=== PATIENT | female | born 1995 | race Caucasian/White ===

== ENCOUNTER 2022-10-17 10:21 | Outpatient (CLI) | payer OTHER, SELFPAY | END 2022-10-17 10:22 | disposition home or self-care (01) | LOC: LKVREF 10:22 | PROVIDERS: PCP Physician Assistant Medical; Visit Provider Physician Assistant Medical | DX: Z00.00 Encounter for general adult medical examination without abnormal findings (principal); F41.9 Anxiety disorder, unspecified; R63.5 Abnormal weight gain; Z13.6 Encounter for screening for cardiovascular disorders | CPT/HCPCS: 80061; 84443 ==

== ENCOUNTER 2023-05-09 14:09 | Outpatient (CLI) | payer OTHER, SELFPAY | END 2023-05-09 14:10 | disposition home or self-care (01) | LOC: LKVREF 14:10 | PROVIDERS: PCP Physician Assistant Medical; Visit Provider Physician Assistant Medical | DX: N93.9 Abnormal uterine and vaginal bleeding, unspecified (principal) | CPT/HCPCS: 82627; 82670; 83001; 83002; 83498; 83520; 84270; 84403; 84443 ==

== ENCOUNTER 2023-05-27 08:25 | Outpatient (CLI) | payer OTHER, SELFPAY | END 2023-05-27 08:26 | disposition home or self-care (01) | LOC: NFLDREF 05-30 09:33 | PROVIDERS: PCP Physician Assistant Medical; Referring Provider Physician Assistant Medical; Visit Provider Physician Assistant Medical | DX: N92.6 Irregular menstruation, unspecified (principal); R01.1 Cardiac murmur, unspecified | CPT/HCPCS: 84146 ==

== ENCOUNTER 2023-05-28 07:57 | Outpatient (CLI) | payer OTHER, SELFPAY ==
--- NOTE | 2023-05-28 08:15 | CRLHL7_ITS ---
For Patients: As a result of the Century Cures Act, medical imaging exams and procedure reports are released immediately into your electronic medical record. You may view this report before your referring provider. If you have questions, please contact your health care provider. INDICATION: 28 year-old female. Irregular menses. TECHNIQUE: Transabdominal and transvaginal pelvic ultrasound. FINDINGS: Normal-appearing uterus measuring 7.6 x 3.7 x 8.9 cm. Normal endometrial stripe of 8 mm measured transvaginally. Normal-sized ovaries without torsion or mass. The right ovary measures 4.4 x 2.9 x 2.7 cm and the left ovary 4.3 x 2.6 x 3.0 cm. Small follicles are identified in each ovary. Trace free fluid in the cul-de-sac likely physiologic. Tiny cervical nabothian cyst. IMPRESSION: Normal transabdominal and transvaginal pelvic ultrasound. Dictated by Juanjo Olivia MD @ 05/28/2023 11:21:26 AM (Electronically Signed)
== END 2023-05-28 07:58 | disposition home or self-care (01) ==
LOC: US 07:57
PROVIDERS: PCP Physician Assistant Medical; Visit Provider Physician Assistant Medical
DX: N92.6 Irregular menstruation, unspecified (principal)
CPT/HCPCS: 76830; 76856

== ENCOUNTER 2023-06-14 08:47 | Outpatient (CLI) | payer OTHER, SELFPAY ==
--- NOTE | 2023-06-14 09:15 | CRLHL7_ITS ---
For Patients: As a result of the Century Cures Act, medical imaging exams and procedure reports are released immediately into your electronic medical record. You may view this report before your referring provider. If you have questions, please contact your health care provider. Indication: Infertility Technique: Hysterosalpingogram. Fluoroscopic time 31 seconds. IMPRESSION: Normal patency of the fallopian tubes. No endometrial filling defect. Normal exam. Dictated by Raul Chan MD @ 06/14/2023 10:36:05 AM (Electronically Signed)
--- NOTE | 2023-06-14 09:56 | W.PM.GYNPROC ---
Procedure Note Date of procedure: 06/14/23 Procedure: Hysterosalpingogram Procedure Description: PREPROCEDURE DIAGNOSIS: Primary infertility. POSTPROCEDURE DIAGNOSIS: 1. Primary infertility. 2. Patent fallopian tubes bilaterally. NAME OF PROCEDURE: Hysterosalpingogram. ANESTHESIA: None. COMPLICATIONS: None. PROCEDURE: After obtaining verbal and written consent, the patient was placed in the dorsal lithotomy position on the x-ray table. An open-sided bivalve speculum was introduced into the vagina and the cervix easily visualized. The cervix and vagina were then prepped with Betadine. The anterior lip of the cervix was grasped with a single-tooth tenaculum for traction. A balloon tipped double-lumen catheter was then gently inserted through the cervical opening into the uterine cavity to the level of the fundus. The balloon was insufflated with 3 mL of air. The speculum was removed. The patient was repositioned in the supine position, covered, and the radiologist was called to the room. A hysterosalpingogram was then performed. A total of approximately 4 cc of Optiray 300 water soluble contrast dye was injected through the double-lumen catheter under moderate pressure. There was immediate fill of the uterine cavity to the cornua and immediate fill of both fallopian tubes and free spillage into the peritoneal cavity. The endometrial cavity was normal shape. The balloon was deflated. The catheter was removed. The tenaculum was removed, and hemostasis of the cervix was noted. The patient tolerated the procedure very well. She was discharged to home in stable condition to follow up as [facility].
== END 2023-06-14 08:48 | disposition home or self-care (01) ==
LOC: RAD 08:47
PROVIDERS: PCP Physician Assistant Medical; Visit Provider Obstetrics & Gynecology
DX: N92.6 Irregular menstruation, unspecified (principal); N97.9 Female infertility, unspecified
CPT/HCPCS: 58340; 74740; A4649; Q9967

== ENCOUNTER 2023-12-11 08:01 | Outpatient (CLI) | payer OTHER, SELFPAY ==
--- NOTE | 2023-12-11 08:15 | US_ITS ---
Patient: SHARRI NULL Facility:?[facility] RIS Patient ID:?[id number] Site Patient ID:?[id number]. Site :?[id number] Study:?US-OB Pelvis TV OB<14wks-12/11/2023 9:03:52 AM Ordering Physician:Monica Greene Final Report: OBSTETRICAL ULTRASOUND, 12/11/2023 INDICATION: Ultrasound for dates and viability. 8, para 3. LMP: 10/13/2023 NOE by LMP: 07/19/2024 Previous US: No TECHNIQUE: Transvaginal pelvic ultrasound. FINDINGS: CRL: 2.02 cm, 8 weeks 4 days; NOE 07/18/2024 heart rate: 165 BPM Gestational sac: 3.73 cm Yolk sac: 3.1 mm Right ovary: Within normal limits; 3.0 x 1.9 x 2.1 cm Left ovary: Within normal limits; 5.3 x 3.2 x 3.6 cm, CL 2.9 cm IMPRESSION: 1. Single viable intrauterine . 2. Measurements are consistent with dates. LENA GOLDSTEIN M.D. Body/Diagnostic Radiologist [email or web address] NJG:mitchell D& Transcribed: 12:[address]/Dictated by: Lena Goldstein MD @ 12/11/2023 12:07:00 PM Signed by:?Lena Goldstein MD @12/11/2023 12:32:00 PM (Electronic Signature)
== END 2023-12-11 08:02 | disposition home or self-care (01) ==
LOC: US 08:03
PROVIDERS: PCP Physician Assistant Medical; Visit Provider Registered Nurse
DX: Z34.81 Encounter for supervision of other normal pregnancy, first trimester (principal); Z3A.08 8 weeks gestation of pregnancy
CPT/HCPCS: 76817; 82565; 82570; 84156; 84450; 84460; 84520; 84550; 86703; 86706; 86803; 86850; 86900; 86901; 87086; 87340; 87491; 87591

== ENCOUNTER 2023-12-11 09:14 | Outpatient (CLI) | payer OTHER, SELFPAY ==
[2023-12-11 16:00] LABS: Chlamydia DNA Amplified* NOT DETECTED (No Detected); GC DNA Amplified* NOT DETECTED (No Detected)
== END 2023-12-11 09:15 | disposition home or self-care (01) ==
PROVIDERS: PCP Physician Assistant Medical; Visit Provider Registered Nurse
DX: Z34.01 Encounter for supervision of normal first pregnancy, first trimester (principal)
CPT/HCPCS: 82565; 82570; 84156; 84450; 84460; 84520; 84550; 86592; 86703; 86704; 86706; 86762; 86787; 86803; 86850; 86900; 86901; 87086; 87340; 87491; 87591

== ENCOUNTER 2024-01-13 07:55 | Outpatient (CLI) | payer OTHER, SELFPAY | END 2024-01-13 07:56 | disposition home or self-care (01) | LOC: NFLDREF 01-17 15:51 | PROVIDERS: PCP Physician Assistant Medical; Referring Provider Physician Assistant Medical; Visit Provider Registered Nurse | DX: Z34.01 Encounter for supervision of normal first pregnancy, first trimester (principal) | CPT/HCPCS: 82570; 84156 ==

== ENCOUNTER 2024-02-05 10:52 | Outpatient (CLI) | payer OTHER, SELFPAY | END 2024-02-05 10:53 | disposition home or self-care (01) | LOC: NFLDREF 10:53 | PROVIDERS: PCP Physician Assistant Medical; Visit Provider Obstetrics & Gynecology | DX: Z34.92 Encounter for supervision of normal pregnancy, unspecified, second trimester (principal); Z3A.16 16 weeks gestation of pregnancy | CPT/HCPCS: 81511 ==

== ENCOUNTER 2024-03-04 07:01 | Outpatient (CLI) | payer OTHER, SELFPAY ==
--- NOTE | 2024-03-04 07:15 | CRLHL7_ITS ---
For Patients: As a result of the Century Cures Act, medical imaging exams and procedure reports are released immediately into your electronic medical record. You may view this report before your referring provider. If you have questions, please contact your health care provider. INDICATION: Evaluate anatomy. COMPARISON: 12/11/2023 TECHNIQUE: Real time tierney scale imaging of the fetus was performed as well as color Doppler analysis of the umbilical vessels. FINDINGS: Sonographic imaging demonstrates a single living intrauterine gestation. Fetus demonstrates a regular cardiac rate of 121 beats per minute. Fetus has a vertex position. The placenta lies anteriorly without evidence of placenta previa. Edge of the placenta located 8.2 cm from the internal cervical os. Amniotic fluid volume appears normal. Single deepest vertical pocket: 4.5 cm. The cervix is closed and measures 3.7 cm in length. The composite ultrasound gestational age is calculated at 20 weeks 5 days with an estimated sonographic due date of 07/17/2024. The estimated weight is 385 grams which lies at the 72nd %. The following biometric measurements were obtained: Biparietal diameter: 4.7 cm/20 weeks 1 day 36th% Head circumference: 18.0 cm/20 weeks 3 days 41st% Abdominal circumference: 16.3 cm/21 weeks 3 day 75th% Femur length: 3.4 cm/20 weeks 3 days 44th% The HC/AC ratio measures: 1.10 range (1.06-1.25) On anatomic survey, there is a normal appearance of the cerebral ventricles, cavum septi pellucidi, cisterna magna and cerebellum. The nose and lips appear normal. Incomplete visualization of the profile. The cervical, thoracic and lumbar spine are well visualized and appear normal. There is a normal four-chamber heart view and the left and right ventricular outflow tracts appear normal. The diaphragm and stomach appear normal. The kidneys and bladder also appear normal. There is a normal three-vessel cord and cord insertion site. The four extremities appear normal. IMPRESSION: Normal OB ultrasound exam with concordance of clinical and sonographic dating. Incomplete visualization of the profile. Remainder of the anatomic survey normal. Short-term follow-up recommended. Dictated by Raul Chan MD @ 03/05/2024 8:49:57 AM (Electronically Signed)
== END 2024-03-04 07:02 | disposition home or self-care (01) ==
LOC: US 07:01
PROVIDERS: PCP Physician Assistant Medical; Visit Provider Obstetrics & Gynecology
DX: Z34.92 Encounter for supervision of normal pregnancy, unspecified, second trimester (principal); Z3A.20 20 weeks gestation of pregnancy
CPT/HCPCS: 76805

== ENCOUNTER 2024-04-01 12:07 | Outpatient (CLI) | payer OTHER, SELFPAY ==
--- NOTE | 2024-04-01 12:15 | CRLHL7_ITS ---
For Patients: As a result of the Century Cures Act, medical imaging exams and procedure reports are released immediately into your electronic medical record. You may view this report before your referring provider. If you have questions, please contact your health care provider. INDICATION: 2nd trimester anatomical survey follow-up. TECHNIQUE: Ultrasound OB pelvis transabdominal. Real-time tierney-scale imaging of the fetus was performed as well as color Doppler and spectral Doppler analysis of the umbilical artery. COMPARISON: 03/04/2024. FINDINGS: Intrauterine gestation: Single. heart rate: Regular, 144 bpm. presentation: Breech. Placenta: Anterior, without previa. Cervix: Not measured. Amniotic fluid: 6 cm deepest pocket. BPD: 20th percentile. HC: 37th percentile. HC: 93rd percentile. FL: 37th percentile. Anatomy not seen on previous anatomical survey: facial profile is visualized and appears normal. IMPRESSION: Single viable intrauterine . Normal facial profile is visualized on today`s exam. Dictated by Hugo Wiley MD @ 04/03/2024 7:08:57 AM (Electronically Signed)
== END 2024-04-01 12:08 | disposition home or self-care (01) ==
LOC: US 12:07
PROVIDERS: PCP Physician Assistant Medical; Visit Provider Obstetrics & Gynecology
DX: Z34.90 Encounter for supervision of normal pregnancy, unspecified, unspecified trimester (principal); O35.AXX0 Maternal care for other (suspected) fetal abnormality and damage, fetal facial anomalies, not applicable or unspecified
CPT/HCPCS: 76816

== ENCOUNTER 2024-04-29 09:32 | Outpatient (CLI) | payer OTHER, SELFPAY | END 2024-04-29 09:33 | disposition home or self-care (01) | LOC: NFLDREF 05-01 08:47 | PROVIDERS: PCP Physician Assistant Medical; Referring Provider Physician Assistant Medical; Visit Provider Obstetrics & Gynecology | DX: Z34.03 Encounter for supervision of normal first pregnancy, third trimester (principal) | CPT/HCPCS: 86592 ==

== ENCOUNTER 2024-06-24 14:17 | Outpatient (CLI) | payer OTHER, SELFPAY ==
[2024-06-25 13:36] LABS: Strep B DNA Probe Negative (Negative)
[2024-06-25 13:41] LABS: Strep B Susceptibility Needed? No
== END 2024-06-24 14:18 | disposition home or self-care (01) ==
LOC: NFLDREF 14:17
PROVIDERS: PCP Physician Assistant Medical; Visit Provider Obstetrics & Gynecology
DX: Z34.93 Encounter for supervision of normal pregnancy, unspecified, third trimester (principal); Z3A.36 36 weeks gestation of pregnancy
CPT/HCPCS: 87081; 87653

== ENCOUNTER 2024-07-14 01:05 | Outpatient (CLI) | payer OTHER, SELFPAY ==
[2024-07-14 01:14] VITALS: BP 130/90; PULSE 85; PULSE 88; RESP 16; TEMP 36.7; O2SAT 99
--- NOTE | 2024-07-14 02:35 | PC.OBNST ---
NST Note NST Note Start: 07/14/24 01:17 Freq: ONCE Status: Active Protocol: Document 07/14/24 02:32 RRP (Rec: 07/14/24 02:34 RRP [id number]) NST Note 1 Para (# of births) 0 EDC 07/19/24 Gestational Age In Weeks & Days 39 Weeks & 2 Days Patient Presented with Complaint(s) of Contractions/cramping, Decreased movement Reactive Yes Appropriate for Gestational Age Yes PHU Castro RN Date 07/14/24 Reactive Yes Appropriate for Gestational Age Yes PHU Casas Date 07/14/24 OB NST charge Yes Complete NST Note via Write Note Yes The provider's electronic signature indicates the NST is reactive/appropriate for gestational age. *Note to provider: If an addendum is required, open the patient's chart and click on the note under the Nurse/Allied Health tab.
== END 2024-07-14 02:30 | disposition home or self-care (01) ==
LOC: OB OUT 01:06 → OB 01:08
PROVIDERS: PCP Physician Assistant Medical; Visit Provider Obstetrics & Gynecology
DX: O47.1 False labor at or after 37 completed weeks of gestation (principal); O36.8130 Decreased fetal movements, third trimester, not applicable or unspecified; Z3A.39 39 weeks gestation of pregnancy
CPT/HCPCS: 59025; G0463

== ENCOUNTER 2024-07-19 13:53 | Outpatient (CLI) | payer OTHER, SELFPAY ==
[2024-07-19 14:04] VITALS: PULSE 89; O2SAT 97
[2024-07-19 14:08] VITALS: BP 132/76; PULSE 82
[2024-07-19] MEDS: hydrOXYzine pamoate 25 MG CAPSULE 100 MG PO (16:48)
[2024-07-19] MEDS: MORPHINE 10 MG/ML inj IM (16:48)
--- NOTE | 2024-07-19 18:32 | PC.OBNST ---
NST Note NST Note Start: 07/19/24 13:58 Freq: ONCE Status: Active Protocol: Document 07/19/24 18:32 MARILUZBRANDON (Rec: 07/19/24 18:32 MARILUZBRANDON [id number]) NST Note 1 Para (# of births) 0 EDC 07/19/24 Gestational Age In Weeks & Days 40 Weeks & 0 Days Patient Presented with Complaint(s) of Contractions/cramping Reactive Yes Appropriate for Gestational Age Yes PHU Jimenez Date 07/19/24 Reactive Yes Appropriate for Gestational Age Yes PHU Dc RN Date 07/19/24 OB NST charge Yes Complete NST Note via Write Note Yes The provider's electronic signature indicates the NST is reactive/appropriate for gestational age. *Note to provider: If an addendum is required, open the patient's chart and click on the note under the Nurse/Allied Health tab.
== END 2024-07-19 17:30 | disposition home or self-care (01) ==
LOC: OB OUT 13:53 → OB 13:55
PROVIDERS: PCP Physician Assistant Medical; Visit Provider Obstetrics & Gynecology
DX: O47.1 False labor at or after 37 completed weeks of gestation (principal); Z3A.40 40 weeks gestation of pregnancy
CPT/HCPCS: 59025; G0463; A9270; J2270

== ENCOUNTER 2024-07-19 23:19 | Inpatient (IN) | payer OTHER, SELFPAY ==
[2024-07-19 22:59] VITALS: BP 134/73; PULSE 99
[2024-07-19 23:10] LABS: Amnisure Rom* POSITIVE
[2024-07-19 23:27] VITALS: RESP 18; TEMP 37.2
[2024-07-19 23:41] LABS: Hematocrit 38.4 % (33.0-51.0); Hemoglobin* 13.2 gm/dL (12.0-16.0); Immature Granulocytes Pct Auto 1.1 %; Lymphocytes Percent Auto 5.1 % (20-44); Mean Corpuscular HGB Conc 34 gm/dL (32-36); Mean Corpuscular Hemoglobin 30 pg (26-34); Mean Corpuscular Volume 87 fL (80-100); Monocytes Percent Auto 4.5 % (0.0-11.0); Neutrophils Percent Auto 89.3 % (42.0-72.0); Platelet Count* 305 K/uL (140-440); RDW Coefficient of Variation % 13.1 % (11.5-15.5); White Blood Count* 22.89 K/uL (4.50-11.00)
[2024-07-19 23:42] LABS: Slide Review Reflex No
--- NOTE | 2024-07-19 23:43 | W.PM.LDBA ---
Subjective History of Present Illness Narrative: Patient is being admitted to Labor and Delivery for spontaneous rupture of membranes at term, ocurring at 10:30 PM tonight. She is a 29 year old at 40 weeks gestation. Her full history and physical was dictated by Dr. Wen on 06/29/2024. Please see this for details. Specific Issues/Plans G 1 P 0 Partner: Heraclio H&P: 06/29/24 Dr. Wen 1. History of infertility. Conceived spontaneously before going to Reproductive Endocrinology. Imagin12/11/2023: 8 weeks, 4 days by CRL, with sonographic NOE 07/18/2024. 03/04/2024: Anterior placenta without previa, normal fluid, EFW 72%, AC 75%. Incomplete visualization of the profile. Otherwise normal anatomy. 04/01/2024: Breech, normal fluid, EFW 84%, AC 93%, all other biometric parameters within normal ranges, normal facial profile. Baseline preeclampsia labs: BUN, Creat, AST, ALT all normal. P/C ratio 0.3*. Total protein 24 hour: 225 NIPT: Negative GBS negative Vaccinations: Covid: Completed, not up-to-date with boosters. Recommended. Patient declines. RSV: 06/24/24 Flu: Done TDAP: 05/13/24 Last pap: due OB - Problem Based A/P Additional Plan (1) : Status: Acute Plan Spontaneous rupture membranes in early labor. Category 1 tracing. GBS negative She requests epidural. Will begin pitocin after epidural placement. Delivery/Labor/Induction Plan Plan: expectant management (If contractions become less frequent, I would recommend initiation of pitocin. ) OB Exam Physical Exam Vital signs: Pulse BP 99 134/73 07/19/24 22:59 07/19/24 22:59 Narrative: Physical exam: General: No acute distress Psych: Alert and oriented x3, full affect HEENT: Normocephalic, atraumatic Heart: Regular rate and rhythm, no murmur rub or gallop Lungs: Clear to auscultation bilaterally Abdomen: Soft, nontender, gravid, cephalic lie Lower extremities: No edema or erythema Pelvic exam: Per RN, 2 cm, 90% effaced, -2 station tracing: Baseline 140, accelerations present, no decelerations, moderate variability Contractions occurring every 1-3 minutes AmniSure positive
[2024-07-20] VITALS (107 sets, daily range): BP systolic 92–202; BP diastolic 50–105; PULSE 73–137; RESP 16–18; TEMP 36.7–37.7; O2SAT 90–100; BMI 29.8
[2024-07-20] MEDS: LACTATED RINGERS 1000 ML 1,000 ML 500 ML IV ×2 (00:17→01:39)
[2024-07-20] MEDS: LIDOCAINE 2% (PF) 5 ML VIAL EPIDURAL ×4 (01:28→11:50)
[2024-07-20] MEDS: ROPIVACAINE 0.2% 100 ml 100 ML 12 MG EPIDURAL ×2 (01:34→08:00)
--- NOTE | 2024-07-20 01:42 | P.ANBPRC_ITS ---
[facility] Medical History Reduced libido ?R68.82 - Decreased libido (ICD-10) Acne (03/18/12) ?L70.9 - Acne, unspecified (ICD-10) Motion sickness ?T75.3XXA - Motion sickness, initial encounter (ICD-10) Generalized anxiety disorder with panic attacks ?F41.1 - Generalized anxiety disorder (ICD-10) ?F41.0 - Panic disorder [episodic paroxysmal anxiety] (ICD-10) Surgical History History of arthroscopy of right knee ?Z98.890 - Other specified postprocedural states (ICD-10) Family History Mother H/O cardiac radiofrequency ablation Maternal Grandmother Ovarian cancer Paternal Grandfather Myocardial infarction Social History (Updated 06/29/24 @ 09:01 by Naomi Wen MD) 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 [facility] What is your current living situation?: I presently have a place to live Problems where you live: no known problems In the past 12 months, utilities in danger of being shut off: no In the past 12 mos, have been you worried that your food would run out before you had money to buy more?: never true In the past 12 mos, the food you bought just didn't last and you didn't have money to buy more?: never true Smoking Status: Never smoker How often does anyone, including family, friends and others, physically hurt you : never How often does anyone, including family, friends and others, insult or talk down to you: never How often does anyone, including family, friends and others, threaten you with harm: never How often does anyone, including family, friends and others, scream or curse at you: never Meds Home Medications and Allergies Home Medications ?Medication ?Instructions ?Recorded ?Confirmed ?Type docosahexaenoic acid 200 mg 200 mg PO DAILY 06/07/23 07/19/24 History capsule ( DHA) cholecalciferol (vitamin D3) 10 10 mcg PO QDAY 05/01/24 12/08/24 History mcg (400 unit) capsule doxylamine succinate 25 mg tablet 25 mg PO QHS PRN 03/04/24 07/19/24 History (Unisom (doxylamine)) Allergies Allergy/AdvReac Type Severity Reaction Status Date / Time penicillin V Allergy Mild hives Verified 07/19/24 22:56 Results Labs Labs: Laboratory Results - last 24 hr 07/19/24 07/19/24 22:58 23:20 WBC 22.89 H RBC 4.40 Hgb 13.2 Hct 38.4 MCV 87 MCH 30 MCHC 34 RDW Coeff of Tra 13.1 Plt Count 305 Neut % (Auto) 89.3 H Lymph % (Auto) 5.1 L [place] % (Auto) 4.5 Eos % (Auto) 0.0 Baso % (Auto) 0.0 Neut # (Auto) 20.40 H Lymph # (Auto) 1.20 [place] # (Auto) 1.00 H Eos # (Auto) 0.00 Baso # (Auto) 0.00 Abs Immat Gran (auto) 0.30 Imm/Tot Granulo (auto) 1.1 Membrane Rupture POSITIVE Blood Type A Positive Antibody Screen NEGATIVE Vital Signs Vital Signs: Last Vital Signs Temp 98.9 F 07/19/24 23:27 Pulse 91 07/20/24 01:40 Resp 18 07/19/24 23:27 BP 119/57 L 07/20/24 01:40 Pulse Ox 94 07/20/24 01:38 Anesthesia Procedures Epidural Insertion Patient Location: OB Start Time: 01:15 Stop Time: 01:45 Start Date: 07/20/24 Stop Date: 07/20/24 Reason for Block: primary anesthetic Patient Position: sitting Performed By: Cricket Lovell Preanesthetic Checklist: IV checked, risks and benefits discussed, surgical consent, monitors and equipment checked, pre-op evaluation, timeout performed and anesthesia consent Prep: chlorhexidine gluconate Monitoring: blood pressure monitoring, hall monitor, continuous pulse oximetry and heart rate Approach: midline Vertebral Space: lumbar (1-5) Needle Type: Tuohy needle Injection Technique: continuous catheter (catheter) Needle gauge: 17 Needle Length (cm): 10 cm Needle Insertion Depth (cm): 5 Catheter Gauge: 19 Catheter Type: multi-orifice Catheter at skin depth (cm): 10 Test Dose Result: negative and lidocaine 1.5% with epinephrine 1 to 200,000
[2024-07-20] MEDS: OXYTOCIN 30 unit/500 ML in NS 30 UNIT/500 ML BAG IVPB (02:54)
[2024-07-20] MEDS: PHENYLEPHRINE 100 MCG/ML SYRINGE IVP (03:20)
[2024-07-20] MEDS: ONDANSETRON 2 MG/ML inj 4 MG IV (04:00)
[2024-07-20] MEDS: LACTATED RINGERS 1000 ML 1,000 ML 125 ML IV ×2 (04:11→06:22)
--- NOTE | 2024-07-20 07:29 | PM.OBPNL ---
Subjective Time Seen by Provider: 07:20 Date Seen: 07/20/24 Narrative: Venus is more comfortable since her epidural, but complains of feeling more pain/pelvic pressure on the right side with contractions since the pitocin infusion was restarted at 6:00 am. She has been lying for a while on her left side. Pitocin infusion had been discontinued around 4:00 am after a prolonged deceleration of the heart rate of 6 minutes duration. The infusion had been started at 2:54 am at 2 mu/min, and was at a maximum of 4 mu/min before discontinuation. Objective Vital Signs: Last Vital Signs Temp 98.2 F 07/20/24 06:36 Pulse 95 07/20/24 07:14 Resp 16 07/20/24 06:36 BP 116/55 L 07/20/24 07:14 Pulse Ox 98 07/20/24 02:03 Pelvic Exam Dilation (cm): 4 Effacement (%): 100 Station: 0 Comments: Forebag palpable. Contractions Monitor mode: External Contraction Frequency: 2-3 minutes Contraction pattern: Regular Contraction intensity: Strong/Firm Pitocin Rate (mU/min): 2 Assessment Assessment: early labor Station: 0 Amniotic Membrane Status: SROM Status: Category ll Heart Rate Baseline: 145 Intermediate Variability: Moderate (6-25) Monitor Accelerations: Present Tracing Comments: Strip reviewed from time of admission: Initially, FHR baseline 150 bpm, category 1 tracing. Spontaneous deceleration of 2 minute duration at 0018 to 110s, with return to baseline. FHR tracing category 1 again at 0100. Deceleration of 6 minute duration to [place] in 90s at [id number]. Resumption of category 1 tracing again noted. 4-minute deceleration noted at 0317 to [place] of 100 bpm. At 0350, FHR deceleration of 6 minute duration noted, discontinuous due to maternal repositioning, to [place] between 60-90s?. Category 1 tracing noted at 0436, 0524 and 0648. Isolated, late-appearing decelerations, nonrepetitive, at 0500 and 0632. Plan Plan: Forebag ruptured, thin meconium-stained fluid noted. Continue pitocin infusion as tolerated. Continue close monitoring of status.
[2024-07-20] MEDS: fentaNYL 100 MCG/2 ML inj EPIDURAL ×2 (08:13→11:50)
[2024-07-20] MEDS: ROPIVACAINE 0.2% 100 ml 100 ML 16 MG EPIDURAL (12:55)
--- NOTE | 2024-07-20 15:34 | W.PM.OBVAGDE ---
OB Procedure Vag Delivery Mother Details Mother Details: The patient is a 29 year-old, 1, Para 0, admitted on 07/19/24 at 40 0/7 weeks gestation for spontaneous rupture of membranes. : 1 Para: 0 Weeks Gestation: 40 Admission Date: 07/19/24 Additional Details Amniotic Membrane Status: SROM Amniotic Membrane Rupture Date: 07/19/24 Amniotic Membrane Rupture Time: 22:30 Amniotic Membrane Fluid Description: Meconium Stained (initially clear, then light meconium-stained) Analgesia/Anesthesia Type: Epidural and Nitrous Oxide Waterbirth: No Pitcoin: Yes Intrapartal Events: Labor Augmentation Delivery augmentation: pitocin Labor Onset: 01:40 Complete: 14:22 Pushin:26 Heart: heart tones during second stage were category 2, with variable decelerations with pushing. Delivery Details Delivery Date: 07/20/24 Delivery Time: 15:05 Route of delivery: Infant Gender: Male Viability: Alive; Heart Rate Present Position at Delivery: OA Delivery Details: Delivered over via spontaneous vaginal delivery. Infant was placed on maternal abdomen.? Cord was clamped and cut after a 30-60 second delay. Nose and mouth were bulb suctioned.? Infant weight pending. 1 Minute Interval Total Score: 8 5 Minute Interval Total Score: 9 Additional Details Shoulder Dystocia: No Placenta Delivery Time: 15:08 Placental Delivery Description: Spontaneous Delivery repair: Chromic Procedure Done: Global Blood Loss: 160 Laceration: Perineal - 2nd Degree (Also 1st degree superior periurethral laceration, not bleeding and not repaired as it was well approximated at rest) Episiotomy Description: None Blood Loss Measurement Type: QBL Bakri Used: No Sponge/Need Count Correct: Yes Cord Vessel Description: 3 Vessels Event Summary Status: Mother and infant were stable after delivery. Disposition: floor
[2024-07-20] MEDS: IBUPROFEN 600 MG TABLET PO ×3 (16:35→23:25)
[2024-07-20 16:45] LABS: Hematocrit 32.9 % (33.0-51.0); Hemoglobin* 11.1 gm/dL (12.0-16.0); Mean Corpuscular HGB Conc 34 gm/dL (32-36); Mean Corpuscular Hemoglobin 30 pg (26-34); Mean Corpuscular Volume 89 fL (80-100); Platelet Count* 212 K/uL (140-440); Red Blood Count 3.71 m/uL (4.00-5.20)
[2024-07-20 16:56] LABS: Slide Review Reflex No; White Blood Count* 30.35 K/uL (4.50-11.00)
[2024-07-20 17:17] LABS: Creatinine* 0.9 mg/dL (0.5-1.5); Est. Creatinine Clearance* 83.74; Estimated Glomerular Filt Rate 89 ml/min
[2024-07-20 17:18] LABS: Aspartate Amino Transferase* 36 U/L (12-35); Blood Urea Nitrogen* 10 mg/dL (5-24)
[2024-07-20 17:28] LABS: Basophils Absolute Auto 0.01 K/uL (0.00-0.30); Immature Granulocytes Pct Auto 0.3 %; Lymphocytes Percent Auto 1.9 % (20-44); Monocytes Percent Auto 5.7 % (0.0-11.0); Neutrophils Percent Auto 92.1 % (42.0-72.0); RDW Coefficient of Variation % 13.4 % (11.5-15.5)
[2024-07-20 18:32] LABS: Alanine Aminotransferase* 32 U/L (4-35)
[2024-07-20] MEDS: ACETAMINOPHEN 500 MG TABLET 1000 MG PO ×2 (19:30→19:52)
[2024-07-21 04:44] VITALS: BP 112/70; PULSE 77; RESP 16; TEMP 36.5; O2SAT 98
[2024-07-21] MEDS: IBUPROFEN 600 MG TABLET PO ×3 (04:48→18:39)
[2024-07-21 07:58] LABS: Hematocrit 31.1 % (33.0-51.0); Hemoglobin* 10.3 gm/dL (12.0-16.0); Mean Corpuscular HGB Conc 33 gm/dL (32-36); Mean Corpuscular Hemoglobin 30 pg (26-34); Mean Corpuscular Volume 90 fL (80-100); Platelet Count* 168 K/uL (140-440); Red Blood Count 3.44 m/uL (4.00-5.20); White Blood Count* 21.82 K/uL (4.50-11.00)
[2024-07-21 07:59] LABS: Slide Review Reflex No
[2024-07-21 08:15] LABS: Alanine Aminotransferase* 24 U/L (4-35); Aspartate Amino Transferase* 35 U/L (12-35); Blood Urea Nitrogen* 12 mg/dL (5-24); Creatinine* 0.7 mg/dL (0.5-1.5); Est. Creatinine Clearance* 107.67; Estimated Glomerular Filt Rate 121 ml/min
[2024-07-21] MEDS: DOCUSATE SODIUM 100 MG CAPSULE PO (09:06)
[2024-07-21] MEDS: ACETAMINOPHEN 500 MG TABLET 1000 MG PO ×2 (09:06→15:49)
[2024-07-21 09:26] VITALS: BP 123/89; PULSE 88; RESP 16; TEMP 36.8; O2SAT 96
[2024-07-21 12:33] VITALS: BP 112/70; PULSE 80; RESP 16; TEMP 36.8; O2SAT 96
--- NOTE | 2024-07-21 13:02 | PM.OBPNVD1 ---
OB - PN:Subj Subjective Date Seen: 07/21/24 Narrative: Venus is a 29 y.o. who was admitted to L & D for SROM at term.? She had an uncomplicated NVD.? ?? The patient feels well.? The pain is well controlled with current medications.? She has no new complaints.? She is breast feeding and reports things are going well.? the patient has done well.? Vitals have been stable.? She has remained afebrile.? Has a good appetite, is tolerating a general diet.? She is voiding without difficulty.? She is passing gas and has not had a bowel movement.? She is ambulating and denies any dizziness.? Has Small amount of rubra lochia.? OB - PN: Obj Exam Physical Exam: Vital signs: Temp Pulse Resp BP Pulse Ox O2 Del Method 98.3 F 80 16 112/70 96 Room Air 07/21/24 12:33 07/21/24 12:33 07/21/24 12:33 07/21/24 12:33 07/21/24 12:33 07/21/24 09:26 Narrative: GENERAL APPEARANCE:? normal affect, alert, no distress? MOOD:? appropriate? HEENT: normocephalic, neck supple, full ROM? CHEST:? Symmetrical chest wall movement.? Normal respiratory effort.? Clear to auscultation ? HEART:? regular rate and rhythm? ABDOMEN:? soft, non-tender. Uterine fundus is firm, at Umbilicus, Midline and is appropriate for the stage of recovery.? Bowel sounds present.? PERINEUM:? mild edema of the perineum, there is a 2nd degree laceration that is healing well.? EXTREMITIES:? normal and no edema? OB - PN: Obj Data Labs Labs: Laboratory Results - last 24 hr 07/20/24 07/20/24 07/21/24 16:37 17:05 07:46 WBC 30.35 H* 21.82 H RBC 3.71 L 3.44 L Hgb 11.1 L 10.3 L Hct 32.9 L 31.1 L MCV 89 90 MCH 30 30 MCHC 34 33 RDW Coeff of Tra 13.4 Plt Count 212 168 Neut % (Auto) 92.1 H Lymph % (Auto) 1.9 L [place] % (Auto) 5.7 Eos % (Auto) 0.0 Baso % (Auto) 0.0 Neut # (Auto) 28.00 H Lymph # (Auto) 0.60 L [place] # (Auto) 1.70 H Eos # (Auto) 0.00 Baso # (Auto) 0.01 Abs Immat Gran (auto) 0.10 Imm/Tot Granulo (auto) 0.3 BUN 10 12 Creatinine 0.9 0.7 Estimated Creat Clear 83.74 107.67 Estimated GFR 89 121 AST 36 H 35 ALT 32 24 Lab Acknowledgement Test Added OB - PN: A/P Delivery Assessment and Plan (1) care and examination of lactating mother: Status: Acute (2) Secondary perineal tear in the puerperium: Status: Acute Plan day: 1 Plan: routine care Comments: G 1 P 1 status post uncomplicated NVD??? 1.? Continue route PP cares? 2.? .? May see if desired? 3.? Anticipate discharge home tomorrow?
--- NOTE | 2024-07-21 13:20 | PM.ANPOST ---
Post Anesthesia Note Post Anesthesia Note Patient seen: Inpatient Respiratory Status: adequate Cardiovascular Status: adequate Mental Status: baseline Pain: adequate Temp: baseline Anesthetic awareness: N/A Complications: none Follow care: none
[2024-07-21 16:03] VITALS: BP 112/70; PULSE 75; RESP 20; TEMP 36.7; O2SAT 96
[2024-07-21 16:12] LABS: Eosinophils Percent Auto 0.6 % (0.0-7.0); Hematocrit 32.2 % (33.0-51.0); Hemoglobin* 10.6 gm/dL (12.0-16.0); Lymphocytes Percent Auto 10.6 % (20-44); Mean Corpuscular HGB Conc 33 gm/dL (32-36); Mean Corpuscular Hemoglobin 30 pg (26-34); Mean Corpuscular Volume 90 fL (80-100); Neutrophils Percent Auto 81.8 % (42.0-72.0); Platelet Count* 197 K/uL (140-440); RDW Coefficient of Variation % 13.5 % (11.5-15.5); Red Blood Count 3.59 m/uL (4.00-5.20); White Blood Count* 21.98 K/uL (4.50-11.00)
[2024-07-21 16:15] LABS: Slide Review Reflex No
[2024-07-21 21:06] VITALS: BP 103/68; PULSE 86; RESP 18; TEMP 36.7; O2SAT 96
[2024-07-22 02:33] VITALS: BP 124/83; PULSE 78; RESP 18; TEMP 36.6; O2SAT 96
[2024-07-22 02:44] LABS: Rapid Plasma Reagin (RPR) Non Reactive (Non Reactive)
[2024-07-22] MEDS: IBUPROFEN 600 MG TABLET PO (06:38)
--- NOTE | 2024-07-22 09:47 | P.DS_ITS ---
DS: Providers Provider Date Seen: 07/22/24 Date of admission: 07/19/24 23:19 Primary care physician: Marlee Holley PA-C Admitting Clinician: Naomi Wen MD Attending Physician on discharge: Remedios Cuevas CNM DS: Diagnosis Discharge Diagnosis (1) care and examination of lactating mother: Status: Acute (2) Secondary perineal tear in the puerperium: Status: Acute (3) Gestational hypertension: Status: Acute Exam Narrative: Exam Narrative: GENERAL APPEARANCE:? normal affect, alert, no distress MOOD:? appropriate CHEST:? clear to auscultation HEART:? regular rate and rhythm ABDOMEN:? soft, non-tender the uterine fundus is At Umbilicus, Midline and is appropriate for the stage of recovery. PERINEUM:? mild edema of the perineum, there is a Perineal Laceration,?2nd degree, that is healing well. EXTREMITIES:? normal and no edema Const: Vital Signs, click to edit/add: Vital Signs - 24 hr 07/21/24 12:33 07/21/24 16:03 07/21/24 21:06 Temperature 98.3 F 98.1 F 98.1 F Pulse Rate [Pulse Oximeter] 80 75 86 Respiratory Rate 16 20 18 Blood Pressure [Le ft Arm] 112/70 112/70 103/68 Pulse Oximetry 96 96 96 Oxygen Delivery Me thod Room Air Room Air 07/22/24 02:33 Temperature 97.9 F Pulse Rate [Pulse Oximeter] 78 Respiratory Rate 18 Blood Pressure [Le ft Arm] 124/83 Pulse Oximetry 96 Oxygen Delivery Me thod Room Air Documenting provider has reviewed patient's vital signs: yes OB - DS: Summary Hospital Course Hospital Course: Venus is a 29 y.o. G 1 P 1 who was admitted to [facility] for spontaneous ROM. ?She had a NVD that was uncomplicated. The patient feels well. ?The pain is well controlled with current medications. ?She has no new complaints. ?She is breast feeding and reports things are going well. the patient has done well.? Vitals have been stable.? She has remained afebrile.? Has a good appetite, is tolerating a general diet. ?She is voiding without difficulty.? She is passing gas and has not had a bowel movement.? She is ambulating and denies any dizziness.? Has small amount of rubra lochia. She is undecided for prevention. Problems: none plan: Discharge home with baby. Follow up in 2 weeks and 6 weeks. , may see if needed Hgb 10.6. 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 Peripartum Data delivery method: Vaginal Infant Gender: Male Time Spent with Patient Time attestation: Total time spent providing and/or coordinating discharge services: Discharge Plan Discharge Disposition: Home, Self-Care Date of Admission: 07/19/24 23:19 Attending Provider on Discharge: Remedios Cuevas Primary Care Provider: Marlee Holley Condition: Stable Anticipated Discharge Date/Time: 07/22/24 12:00 Discharge Medications: New docusate sodium 100 mg Capsule 100 mg PO DAILY Qty: 90 0RF ibuprofen 600 mg Tablet 600 mg PO Q6H PRNQty: 60 0RF acetaminophen 500 mg Tablet 1,000 mg PO Q6H PRNQty: 0 0RF Continued DHA 200 mg capsule 200 mg PO DAILY cholecalciferol (vitamin D3) 10 mcg (400 unit) capsule 10 mcg PO QDAY Unisom (doxylamine) 25 mg tablet 25 mg PO QHS PRN Discharge Orders: Discharge Order (Routine); Ordered 07/22/24 Ordered By: Remedios Cuevsa Patient Education: OB Over the Counter Medication Information, OB Vaginal/Breast Feeding Additional Instructions: Discharge instructions were reviewed with the patient including signs and sympt oms of infection and home going medications Nothing vaginally for 6 weeks: no tampons or intercourse Off Work or School for 6 weeks [facility] for [facility] BP check?at 2 week visit Call with BP greater than or equal to 160/110 2-week visit: discuss infant feeding concerns, review control options and screen for anxiety/depression. 6-week visit for an annual exam. consultation services are available to all mothers and babies for the first year after delivery.? To make an appointment, please call [phone]. Activity Level: Activity as Tolerated Discharge Diet: Regular Follow Up Appointments: [facility] [Provider Group] Forms: MyHealth Info Instructions
[2024-07-22 10:20] VITALS: BP 120/82; PULSE 85; RESP 16; TEMP 37.1; O2SAT 96
== END 2024-07-22 10:30 | disposition home or self-care (01) | DRG 807 ==
LOC: OB OUT 23:19 → OB 23:19
PROVIDERS: Obstetrics & Gynecology; Admitting Provider Obstetrics & Gynecology; PCP Physician Assistant Medical; Visit Provider Obstetrics & Gynecology
DX: O77.0 Labor and delivery complicated by meconium in amniotic fluid (principal); Z37.0 Single live birth; O76 Abnormality in fetal heart rate and rhythm complicating labor and delivery; O13.4 Gestational [pregnancy-induced] hypertension without significant proteinuria, complicating childbirth; O70.1 Second degree perineal laceration during delivery; Z3A.40 40 weeks gestation of pregnancy
CPT/HCPCS: 01967; 36415; 82565; 83735; 84112; 84450; 84460; 84520; 85025; 85027; 86592; 86850; 86900; 86901; A9270; J2405; J2795; J3010; J7120

== ENCOUNTER 2024-08-19 13:31 | Outpatient (CLI) | payer OTHER, SELFPAY ==
--- NOTE | 2024-08-19 15:17 | P.LACCB_ITS ---
Consult Note - Mom Date of Visit Date of visit: 08/19/24 Reason for consultation: Assistance Needed (weak latch, poor milk transfer) and Weight Concern Visit Code: Visit Patient's Information Phone number: [phone] Para: 1 Allergies penicillin V Allergy (Mild, Verified 07/19/24 22:56) hives Mother's medical history: Difficulty conceiving Mother's Medical History: Medical History (Updated 07/27/24 @ 00:00 by Background Daemon) Secondary perineal tear in the puerperium ?O90.1 - Disruption of perineal obstetric wound (ICD-10) Reduced libido ?R68.82 - Decreased libido (ICD-10) Acne (03/18/12) ?L70.9 - Acne, unspecified (ICD-10) Motion sickness ?T75.3XXA - Motion sickness, initial encounter (ICD-10) Generalized anxiety disorder with panic attacks ?F41.1 - Generalized anxiety disorder (ICD-10) ?F41.0 - Panic disorder [episodic paroxysmal anxiety] (ICD-10) Work Plans: return to work at 12 weeks Delivery Information Delivery type: Vaginal Gestational Age: 40 weeks Gestational Weight For Age: AGA Weight: 3.12 kg Discharge Weight: 3.048 kg Percentage weight loss: 2.3 Baby's Information Baby's Age at Visit: 30 days Baby's Provider or Clinic: [facility] Jaundice: No Past Experience Past Experience: No Current Frequency of Day Feedings: every 2-3 hours Frequency of Night Feedings: 5-6 hour stretch x1 Both Breasts: Yes Suck: weak Latch: comfortable Length of Time: 15-20 min ea breast Pumping Pumping: Yes Quantity Pumped: 7.5 oz in the AM after feeding, then 2-4 oz ea pump throughout the day Supplementing EBM Supplement: Yes (taking 2-4 oz after x1 week now) Formula Supplement: No Baby Elimination Number of Wet Diapers a Day: ea feeding Number of BM a Day: 5-6/day Breast/Nipple Condition Breast Information: Breasts are symmetrical with rounded lower quadrants, intramammary distance is less than 1.5 inches. No erythema. Nipples are supple, everted prior to feeding. Breast Shape: Round Engorgement: No Maternal Nipple Condition - Left: Flat Nipple and Inverted Maternal Nipple Condition - Right: Common Nipple Sore Nipples: No Baby Assessment Skin: Normal Tongue/frenulum: Normal/elastic Palate: Average Lips: Relaxed and Symmetrical Jaw Alignment: Symmetrical Mucosa: [place], moist Onsite Observation Pre-Feed weight: 3.702 kg (up 59 grams since clinic visit on 08/17/24) Post-Feed weight: 3.736 kg Milk Transferred (mL): 34 Position: Cross cradle Attachment/latch-on achieved: Easily Suck pattern: Suck burst and normal rest Swallow: Audible, consistent Behavior following feed: Alert, fussy Pre-Nursing Left Nipple: Within Normal Limits Pre-Nursing Right Nipple: Within Normal Limits Post-Nursing Left Nipple: Within Normal Limits Post-Nursing Right Nipple: Within Normal Limits Assessments/Interventions Assessments/Interventions: observation: Deric latched easily to mom's right breast in cross cradle position; eagerly nursed and swallowing noted. Nursed with swallows for about 10 minutes and then seemed to develop a weaker latch Mom repositioned him at the breast with a deeper latch and again more engagement in feeding but fussier at the breast, possibly due to milk flow slowing down and his need to nurse more strongly. Nursed for 4 minutes with this pattern/behavior. Mom took him off; he was weighed. Transferred 34 ml of milk in about 14 minutes. Tried to assess suck strength but baby much too fussy for this. Mom tried to latch him to her left breast (with more flat/inverted nipple). Babe latches and suckles, but does not move into transferring milk with audible swallows. Mom repositions him in a deeper latch and babe pushes off. She tries for 5 minutes to relatch in different positions to no avail. Offers him bottle that she brought with her and he immediately takes it in and drinks 2.5 oz via paced bottle feeding technique. Tried to utilize a SNS while , but babe too upset to latch s uccessfully. Discussed this option with mom if desires to try and get him more milk at the breast while he is strengthening his suck patter. Education provided: Early feeding cues to maximize timing of latching, Asymmetric latch technique for wide/deep latch to increase milk, Transfer for baby and increase comfort for mom, Supply/demand nature of milk supply, Need for frequent stimulation/milk removal, Alternative feeding methods (SNS, cup, finger feeding, bottling) (Paced bottle feeding emphasized to help keep accustomed to ) and Pumping for milk management Feeding Plan: Continue with current feeding plan with additional thoughts: 1. Feed every 2-3 hours as he cues; offer bottle after feeding IF he acts hungry. 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 2. Breast compression as he starts to fatigue at the breast to keep engaged for feeding. 3. Possibly limit feedings to 15 minutes if he's not activly swallowing until he is nursing more strongly to allow time for pumping and supplementing 4. Suck training exercises: specifically tug of war type exercise for 45-60 seconds before ea diaper change 5. A Left torticollis was noted at his last well check; discussed this diagnosis can add to challenges with . Positioning for nursing reviewed, gentle stretches discussed (chin over shoulder to both sides), tummy time encouraged. This will be followed at his next well exam; mom to reach out to PCP if notices it worsening prior to next appt. Follow-Up Suggested follow up: Appointment as needed Time Spent Time spent with patient (min): 85 (time spent with patient, baby and reviewing EMR) Meds Home Medications and Allergies Home Medications ?Medication ?Instructions ?Recorded ?Confirmed ?Type docosahexaenoic acid 200 mg 200 mg PO DAILY 06/07/23 07/19/24 History capsule ( DHA) cholecalciferol (vitamin D3) 10 10 mcg PO QDAY 12/11/23 07/19/24 History mcg (400 unit) capsule doxylamine succinate 25 mg tablet 25 mg PO QHS PRN 03/04/24 07/19/24 History (Unisom (doxylamine)) Allergies Allergy/AdvReac Type Severity Reaction Status Date / Time penicillin V Allergy Mild hives Verified 07/19/24 22:56
== END 2024-08-19 13:32 | disposition home or self-care (01) ==
PROVIDERS: PCP Physician Assistant Medical; Visit Provider Obstetrics & Gynecology
DX: Z39.1 Encounter for care and examination of lactating mother (principal)
CPT/HCPCS: G0463

== ENCOUNTER 2024-08-28 14:02 | Outpatient (CLI) | payer OTHER, SELFPAY ==
[2024-08-30 20:23] LABS: HPV Source Cervix; HPV, High Risk by TMA Not Detected
== END 2024-08-28 14:03 | disposition home or self-care (01) ==
PROVIDERS: PCP Physician Assistant Medical; Visit Provider Registered Nurse
DX: Z39.2 Encounter for routine postpartum follow-up (principal); Z12.4 Encounter for screening for malignant neoplasm of cervix
CPT/HCPCS: 87624; 87625; 88141; 88142

== ENCOUNTER 2025-05-17 12:01 | Outpatient (CLI) | payer OTHER, SELFPAY ==
--- NOTE | 2025-05-17 12:15 | CRLHL7_ITS ---
For Patients: As a result of the Cures Act, medical imaging exams and procedure reports are released immediately into your electronic medical record. You may view this report before your referring provider. If you have questions, please contact your health care provider. OB ULTRASOUND INDICATION: Dating and viability. TECHNIQUE: Real time tierney scale imaging of the fetus was performed. Transvaginal imaging performed. LMP: 03/19/2025. NOE by LMP: 12/24/2025. GA: 8 w, 3 d. Previous US: No. CRL: 1.6 cm. 8 w 0 d. NOE: 12/27/2025. FHR: 167 BPM. Gestational sac: 1.6 cm. Appears within normal limits. Yolk sac: 3.6 mm. Appears within normal limits. Right ovary: Within normal limits. 4.0 x 3.3 x 4.0 cm. CL. Left ovary: Within normal limits. 2.1 x 2.0 x 1.9 cm. IMPRESSION: 1. Single living intrauterine measures 8 weeks 0 days with a sonographic due date of 12/27/2025. 2. Simple right ovarian cyst measures 3.2 x 2.8 x 2.3 cm. Raul Chan M.D. Diagnostic Radiologist [email or web address] NAKUL/Dictated by: Raul Chan MD @ 05/17/2025 8:32:00 PM (Electronically Signed)
== END 2025-05-17 12:02 | disposition home or self-care (01) ==
LOC: US 12:01
PROVIDERS: PCP Physician Assistant Medical; Visit Provider Physician Assistant
DX: O34.81 Maternal care for other abnormalities of pelvic organs, first trimester (principal); N83.291 Other ovarian cyst, right side; Z3A.08 8 weeks gestation of pregnancy
CPT/HCPCS: 76817; 83021; 86592; 86703; 86704; 86706; 86762; 86787; 86803; 86850; 87086; 87340; 87491; 87591

== ENCOUNTER 2025-05-17 13:17 | Outpatient (CLI) | payer OTHER, SELFPAY ==
[2025-05-17 22:19] LABS: Chlamydia DNA Amplified* NOT DETECTED (No Detected); GC DNA Amplified* NOT DETECTED (No Detected)
== END 2025-05-17 13:18 | disposition home or self-care (01) ==
PROVIDERS: PCP Physician Assistant Medical; Visit Provider Physician Assistant
DX: Z34.91 Encounter for supervision of normal pregnancy, unspecified, first trimester (principal); Z3A.08 8 weeks gestation of pregnancy
CPT/HCPCS: 83020; 83021; 85660; 86592; 86703; 86704; 86706; 86762; 86787; 86803; 86850; 87086; 87340; 87491; 87591

== ENCOUNTER 2025-07-14 08:29 | Outpatient (CLI) | payer OTHER, SELFPAY | END 2025-07-14 08:30 | disposition home or self-care (01) | PROVIDERS: PCP Physician Assistant Medical; Visit Provider Advanced Practice Midwife | DX: O13.2 Gestational [pregnancy-induced] hypertension without significant proteinuria, second trimester (principal) | CPT/HCPCS: 81511; 82565; 82570; 84156; 84450; 84460; 84520 ==

== ENCOUNTER 2025-07-19 08:56 | Outpatient (CLI) | payer OTHER, SELFPAY | END 2025-07-19 08:57 | disposition home or self-care (01) | LOC: NFLDREF 07-23 10:24 | PROVIDERS: PCP Physician Assistant Medical; Referring Provider Physician Assistant Medical; Visit Provider Advanced Practice Midwife | DX: O12.12 Gestational proteinuria, second trimester (principal) | CPT/HCPCS: 82570; 84156 ==

== ENCOUNTER 2025-08-09 09:43 | Outpatient (CLI) | payer OTHER, SELFPAY | END 2025-08-09 09:44 | disposition home or self-care (01) | LOC: RAD 09:43 | PROVIDERS: PCP Physician Assistant Medical; Visit Provider Physician Assistant | DX: R01.1 Cardiac murmur, unspecified (principal); I35.1 Nonrheumatic aortic (valve) insufficiency; I34.0 Nonrheumatic mitral (valve) insufficiency; I07.1 Rheumatic tricuspid insufficiency | CPT/HCPCS: 93306 ==

== ENCOUNTER 2025-08-10 13:44 | Outpatient (CLI) | payer OTHER, SELFPAY ==
--- NOTE | 2025-08-10 14:00 | CRLHL7_ITS ---
For Patients: As a result of the 21st Century Cures Act, medical imaging exams and procedure reports are released immediately into your electronic medical record. You may view this report before your referring provider. If you have questions, please contact your health care provider. OB ULTRASOUND SURVEY LMP: 03/19/2025. NOE by LMP: 12/24/2025. GA: 20 w, 4 d. INDICATION: anatomy scan. TECHNIQUE: Real time tierney scale imaging of the fetus was performed. Evaluate anatomy. Transabdominal. position: Breech. Cervix: Visualized. Technique: Transabdominal. Length of closed cervix: 3.6 cm. Placenta/cord: Posterior. Technique: Transabdominal. Placenta tip to internal OS: 3.3 cm. Umbilical Cord: 3-vessel cord. Single UA. Placenta insertion: Central. Amniotic Fluid: 3.9 cm SDP (greater than/equal to: 2- less than 8 cm). SURVEY: Observed Structures. Calvarium/Spine: Cerebellum: 2.1 cm, 20 w 4 d. Cisterna Magna: 4.0 mm. Nuchal Fold: 5.7 mm. Lateral Ventricle: 6.7 mm. CSP: Yes. Midline Falx: Yes. Choroid Plexus: Yes. Spine: Yes. Abdomen: Stomach: Yes. Abd Cord Insertion: Yes. Urinary Bladder: Yes. Kidneys: Yes. Diaphragm: Yes. Face: Nose/lips: Yes. Orbital view: Yes. Profile: Yes. Limbs: Upper Extremities: Yes. Lower Extremities: Yes. Hands: Yes. Feet: Yes. Vascular: 4-Chamber Heart: Incomplete visualization. LVOT: Incomplete visualization. RVOT: Incomplete visualization. 3VV: Incomplete visualization. 3VTV: Incomplete visualization. BPD: 4.1 cm. 18 w, 3 d, <3 percent. HC: 16.7 cm. 19 w, 3 d, 4.6 percent. AC: 15.3 cm. 20 w, 4 d, 41.8 percent. FL: 3.2 cm. 20 w, 0 d, 23.7 percent. FL/AC ratio: 21.0 percent. HC/AC ratio: 1.1. heart rate: 144 bpm. age by this US: 20 w, 0 d. NOE by this US: 12/28/2025. EFW: 334.5 g. Weight: - lbs, 12 oz. Percentile by NOE: 23.3 percent. IMPRESSION: 1. Incomplete visualization of the heart views. Remainder of the anatomic survey is normal. Short term follow-up recommended. 2. Concordance of clinical and sonographic dating. 3. Estimated weight 23rd percentile. Abdominal circumference 42nd percentile. BPD less than 30 percentile. 4. Single umbilical artery. Raul Chan M.D. Diagnostic Radiologist [email or web address] MAGI/terry JR/Dictated by: Raul Chan MD @ 08/11/2025 6:27:00 AM (Electronically Signed)
== END 2025-08-10 13:45 | disposition home or self-care (01) ==
LOC: US 13:45
PROVIDERS: PCP Physician Assistant Medical; Visit Provider Advanced Practice Midwife
DX: Z34.92 Encounter for supervision of normal pregnancy, unspecified, second trimester (principal); Z3A.20 20 weeks gestation of pregnancy
CPT/HCPCS: 76805